=== PATIENT | male | born 1960 | race Caucasian/White ===

== ENCOUNTER 2018-08-18 09:22 | Emergency (ER) | payer SELFPAY ==
[~2018-08-18] VITALS: Ht 175.3 cm; Wt 81.6 kg
--- NOTE | 2018-08-18 09:22 | NUR ---
PT ARRIVED TO ED CPR IN PROGRESS. PER EMS, PT HAD A WITNESSED ARREST. BYSTANDERS INITIATED CPR FOR APPROXIMATELY 5 MINUTERS. EMS ARRIVED AND INITIATED ANOTHER ROUND OF CPR FOR APPROXIMATELY 15 MINUTES, X3 EPI, X1 LIDO, X1 NARCAN AND X1 BICARB GIVEN PRIOR TO ARRIVAL. BS 382 COAL CUTTER. PT ARRIVED TO OUR DEPARTMENT CPR IN PROGRESS, PT TRANSFERRED TO [facility], PT ON BACK BOARD. IO TO LEFT LOWER LEG WITH IV FLUIDS INFUSING. 300ML INFUSED. PT ARRIVED NOT INTUBATED. CPR CONTINUED AND DR. GOLDEN AT BEDSIDE.
--- NOTE | 2018-08-18 09:22 | NUR ---
FULL MILA POWELL, CARBON SETTER AND MINESH GUEVARAP ATTENDING AT BEDSIDE
[2018-08-18] MEDS ORDERED: EPINEPHrine PFS 0.1 MG/ML SYR IVP ONE (09:40)
[2018-08-18] MEDS ORDERED: SODIUM BICARBONATE 8.4% PFS 50 MEQ/50 ML SYR IVP ONE (09:40)
[2018-08-18] MEDS ORDERED: CALCIUM CHLORIDE 10% 100 MG/ML SYR IVP ONE (09:40)
--- NOTE | 2018-08-18 10:04 | NUR ---
JOURNEY[employer] MACHINIST CALLED
--- NOTE | 2018-08-18 10:13 | NUR ---
[facility] CALLED, SPOKE WITH RANDEE. [facility] TO FOLLOW UP.
--- NOTE | 2018-08-18 10:25 | NUR ---
spoke with Makayla from [employer]'s [employer] and deputy will call back with more information.
--- NOTE | 2018-08-18 12:41 | NUR ---
Spoke with Deputy Manley and provided information. 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
--- NOTE | 2018-08-18 13:29 | NUR ---
Spoke Laramiegabriel Manley and she will personally be picking up patient. ETA 20-30 mins
--- NOTE | 2018-08-18 13:35 | NUR ---
Katherine from [facility] called and update was provided.
--- NOTE | 2018-08-18 14:07 | NUR ---
DIRECTOR CUSTOM ARRIVED FOR PATIENT PICKUP.
== END 2018-08-18 09:32 | disposition home or self-care (01) ==
LOC: EDBD 09:22 → MED 09:22
DX: I46.9 Cardiac arrest, cause unspecified (principal); E11.9 Type 2 diabetes mellitus without complications
CPT/HCPCS: 31500; 92950; 99285; J0171